=== PATIENT | male | born 1985 | race Caucasian/White ===

== ENCOUNTER 2016-08-26 13:01 | Emergency (ER) | payer MEDICAID ==
[~2016-08-26] VITALS: Wt 98.0 kg
[2016-08-26] MEDS ORDERED: LIDOCAINE 2% (MDV) 20 ML INJ INJ ONE (14:00)
[2016-08-26] MEDS ORDERED: SILVER NITRATE SWAB TOP ONE (14:00)
[2016-08-26] MEDS ORDERED: HYDROCODONE/APAP (5/325) TAB PO ONE (14:00)
[2016-08-26] MEDS ORDERED: DOXY100T20 PO (15:34)
[2016-08-26] MEDS ORDERED: HYDR-906 PO (15:35)
[2016-08-26] MEDS ORDERED: IBUP-1542 PO (15:35)
[2016-08-26 15:50] VITALS: BP 122/74; PULSE 61; RESP 16; TEMP 98.1
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
== END 2016-08-26 15:36 | disposition home or self-care (01) ==
LOC: FTE 13:01
DX: L98.0 Pyogenic granuloma (principal)
CPT/HCPCS: 12001; Z7502; Z7610

== ENCOUNTER 2016-08-28 10:12 | Emergency (ER) | payer MEDICAID ==
[~2016-08-28] VITALS: Wt 90.0 kg
[~2016-08-28 10:12] MED LIST: DOXY100T20 PO; HYDR-906 PO; IBUP-1542 PO
--- NOTE | 2016-08-28 10:42 | ERD ---
ER Documentation Chief Complaint Date/Time DATE: 08/28/16 TIME: 10:35 Chief Complaint WOUND CHECK ON RIGHT THUMB S/P PROCEDURE HPI This a 22-year-old male who presents the emergency department today for a wound check of the procedure that he had done here in the emergency department 2 days ago. States he is taking his antibiotics. States he is not taking any medication for pain. Denies any fevers or chills. ROS All systems reviewed and are negative except as per history of present illness. Medications Home Meds Active Scripts Ibuprofen* (Motrin*) 600 Mg Tab, 600 MG PO Q6, #30 TAB Prov:CHESTER COE PA-C 08/26/16 Hydrocodone/Acetaminophen ([place] 5-325 Tablet) 1 Each Tablet, 1 TAB PO Q6H Y for PAIN, #7 TAB Prov:CHESTER COE PA-C 08/26/16 Doxycycline Hyclate* (Doxycycline Hyclate*) 100 Mg Tablet.dr, 100 MG PO BID for 7 Days, TAB Prov:CHESTER COE PA-C 08/26/16 Allergies Allergies: Coded Allergies: No Known Drug Allergies (Verified Allergy, Unknown, 08/28/16) PMhx/Soc Medical and Surgical Hx: pt denies Medical Hx, pt denies Surgical Hx Hx Alcohol Use: No Hx Substance Use: No Hx Tobacco Use: No Smoking Status: Never smoker Physical Exam Vitals Vital Signs Date Time Temp Pulse Resp B/P Pulse Ox O2 Delivery O2 Flow Rate FiO2 08/28/16 10:16 97.6 96 17 140/76 98 Physical Exam Const: No acute distress Head: Atraumatic Eyes: Normal Conjunctiva ENT: Normal External Ears, Nose and Mouth. Neck: Full range of motion..~ No meningismus. Resp: Clear to auscultation bilaterally Cardio: Regular rate and rhythm, no murmurs Abd: Soft, non tender, non distended. Normal bowel sounds Skin: Right thumb with evidence of one suture in place. No erythema or warmth. No purulent drainage. Back: No midline or flank tenderness Ext: Right thumb with evidence of one suture in place. Pulses 2+. Good cap refill. Full active range of motion thumb. Neur: Awake and alert Psych: Normal Mood and Affect Procedures/MDM This is a 30-year-old male who presents the emergency department today for a wound check of his right thumb. I did see this patient here in the emergency department 2 days ago and did remove a pyogenic granuloma at the time. The wound appears to be healing well. There is evidence of one suture. There is no erythema or warmth and no purulent drainage. Patient was instructed to return in 5-7 days for suture removal. He was instructed to take antibiotics as prescribed. Low suspicion for sepsis, cellulitis, deep space infection. At this time the patient is stable for discharge and outpatient management. Patient should follow up with their PCP in the next 1-2 days. They may return to the emergency department sooner for any persistent or worsening of symptoms. Patient understood and agreed with the plan. Departure Diagnosis: Primary Impression: Encounter for wound re-check Patient Instructions: Wound Care Additional Instructions: Call your primary care doctor TOMORROW for an appointment during the next 1-2 days.See the doctor sooner or return here if your condition worsens before your appointment time. Continue taking your antibiotics as prescribed Return in 5-7 days for suture removal. Keep wound clean and dry CHESTER COE PA-C Aug 28, 2016 10:42
== END 2016-08-28 10:37 | disposition home or self-care (01) ==
LOC: FTE 10:12
DX: Z48.01 Encounter for change or removal of surgical wound dressing (principal)
CPT/HCPCS: 99281

== ENCOUNTER 2016-09-03 10:12 | Emergency (ER) | payer MEDICAID ==
[~2016-09-03] VITALS: Ht 188 cm; Wt 91.0 kg
[2016-09-03 10:13] VITALS: Ht 188 cm; Wt 91.0 kg
--- NOTE | 2016-09-03 10:47 | ERD ---
ER Documentation Chief Complaint Date/Time DATE: 09/03/16 TIME: 10:41 Chief Complaint SUTURE REMOVAL ON RT THUMB HPI Patient is a 30-year-old male who presents to the ED for suture removal. Patient was seen here on 08/26/16 at that time he had a pyogenic granuloma removed from his right thumb. She denies any active bleeding or discharge from the affected area. Patient denies any fevers, chills, redness, swelling or significant pain. Patient does admit to completing course of antibiotics. ROS All systems reviewed and are negative except as per history of present illness. Medications Home Meds Active Scripts Ibuprofen* (Motrin*) 600 Mg Tab, 600 MG PO Q6, #30 TAB Prov:CHESTER COE PA-C 08/26/16 Hydrocodone/Acetaminophen ([place] 5-325 Tablet) 1 Each Tablet, 1 TAB PO Q6H Y for PAIN, #7 TAB Prov:CHESTER COE PA-C 08/26/16 Doxycycline Hyclate* (Doxycycline Hyclate*) 100 Mg Tablet.dr, 100 MG PO BID for 7 Days, TAB Prov:CHESTER COE PA-C 08/26/16 Allergies Allergies: Coded Allergies: No Known Drug Allergies (Verified Allergy, Unknown, 08/28/16) PMhx/Soc Hx Alcohol Use: No Hx Substance Use: No Hx Tobacco Use: No Physical Exam Vitals Vital Signs Date Time Temp Pulse Resp B/P Pulse Ox O2 Delivery O2 Flow Rate FiO2 09/03/16 10:13 98.1 78 18 138/79 98 Physical Exam GENERAL: Well-developed, well-nourished male. Appears in no acute distress. HEAD: Normocephalic, atraumatic. EYES: Pupils are equally reactive bilaterally. EOMs grossly intact. No conjunctival erythema. ENT: Moist mucous membranes. No uvula deviation. No kissing tonsils. NECK: Supple. No meningismus. Normal range of motion of the neck. LUNG: Clear to auscultation bilaterally. No rhonchi, wheezing, rales or coarse breath sounds. HEART: Regular rate and rhythm. No murmurs, rubs or gallops. EXTREMITIES: Equal pulses bilaterally. No peripheral clubbing, cyanosis or edema. No unilateral leg swelling. NEUROLOGIC: Alert and oriented. Moving all four extremities without any difficulty. Normal speech. Steady gait. SKIN: Normal color. Warm and dry. No rashes or lesions. RIGHT THUMB: Scabbed, necrotic tissue present. [address] No surrounding erythema or warmth. No active bleeding or discharge. Normal ROM of thumb. 2+ RP pulses. Good cap refill. Procedures/MDM MEDICAL DECISION MAKING: This is a 30-year-old male who presents for suture removal from his right thumb after having a pyogenic granuloma removed on 08-26-16. Patient denies any fevers or chills. Patient denies any redness, swelling or active bleeding from the affected site. Patient has normal range of motion of his thumb. Vital signs were reviewed. Patient is afebrile. The wound appears to be healing well with no concerns of acute infection at this time. No wound drainage or wound dehiscence noted. Patient's thumb was soaked in Betadine and normal saline solution prior to attempting to remove suture given that there was significant scabbing and tissue over the suture. At the time of the patient's presentation is consistent with suture removal. Low suspicion for deep space infection, wound dehiscence, sepsis, tendon injury, neurovascular injury. DISCHARGE: At this time, the patient is stable for discharge and outpatient management. Post-procedural wound care was discussed with the patient. I have instructed the patient to promptly return to the ER for any new or worsening symptoms including increasing pain, fever, warmth, redness or swelling. The patient and/ or family expressed understanding of and agreement with this plan. All questions were answered. Home care instructions were provided. Departure Diagnosis: Primary Impression: Encounter for removal of sutures Condition: Stable Patient Instructions: Suture Removal, No Complication Referrals: [facility] YOU HAVE RECEIVED A MEDICAL SCREENING EXAM AND THE RESULTS INDICATE THAT YOU DO NOT HAVE A CONDITION THAT REQUIRES URGENT TREATMENT IN THE EMERGENCY DEPARTMENT. FURTHER EVALUATION AND TREATMENT OF YOUR CONDITION CAN WAIT UNTIL YOU ARE SEEN IN YOUR DOCTORS OFFICE WITHIN THE NEXT 1-2 DAYS. IT IS YOUR RESPONSIBILITY TO MAKE AN APPOINTMENT FOR FOLOW-UP CARE. IF YOU HAVE A PRIMARY DOCTOR --you should call your primary doctor and schedule an appointment IF YOU DO NOT HAVE A PRIMARY DOCTOR YOU CAN CALL OUR PHYSICIAN REFERRAL HOTLINE AT IF YOU CAN NOT AFFORD TO SEE A PHYSICIAN YOU CAN CHOSE FROM THE FOLLOWING [facility] [address] [place] [address] [facility] [address] [facility] [address] [facility] [address] [facility]. [facility] [address] [facility]. [facility] YOU HAVE RECEIVED A MEDICAL SCREENING EXAM AND THE RESULTS INDICATE THAT YOU DO NOT HAVE A CONDITION THAT REQUIRES URGENT TREATMENT IN THE EMERGENCY DEPARTMENT. FURTHER EVALUATION AND TREATMENT OF YOUR CONDITION CAN WAIT UNTIL YOU ARE SEEN IN YOUR DOCTORS OFFICE WITHIN THE NEXT 1-2 DAYS. IT IS YOUR RESPONSIBILITY TO MAKE AN APPOINTMENT FOR FOLOW-UP CARE. IF YOU HAVE A PRIMARY DOCTOR --you should call your primary doctor and schedule and appointment IF YOU DO NOT HAVE A PRIMARY DOCTOR YOU CAN CALL OUR PHYSICIAN REFERRAL HOTLINE AT . IF YOU CAN NOT AFFORD TO SEE A PHYSICIAN YOU CAN CHOSE FROM THE FOLLOWING [facility] INSTITUTIONS: [facility] [address] [place] [address] [facility] [address] [place] [address] [facility] + [facility] [address] [place] [address] Additional Instructions: Call your primary care doctor TOMORROW for an appointment during the next 1-2 days.See the doctor sooner or return here if your condition worsens before your appointment time. CYRUS BLAND PA-C Sep 03, 2016 10:47
== END 2016-09-03 12:31 | disposition home or self-care (01) ==
LOC: FTE 10:12
DX: Z48.02 Encounter for removal of sutures (principal)
CPT/HCPCS: 99281